=== PATIENT | male | born 2000 | race Caucasian/White ===

== ENCOUNTER 2019-03-12 10:08 | Emergency (ER) | payer OTHER ==
[~2019-03-12] VITALS: Ht 182.9 cm; Wt 78.9 kg
[2019-03-12 10:08] VITALS: BP 96/61
--- NOTE | 2019-03-12 10:08 | NUR ---
PT BIBA TO BED 09.
--- NOTE | 2019-03-12 10:09 | NUR ---
pr arrived to ed by ambulance c/o right sided pain s/p falling off a skateboard x today at [id number]. pt rates pain level of 7/10 and describes it as sharp pain. right shoulder pain has abrasions, no obvious deformity noted. right side of head shows redness on scalp and no bleeding/hematoma noted. right sided arm has cms intact. a&o x 4. perrla 2mm. vs stable. no loc denies pmh. nka.
[2019-03-12 10:17] VITALS: BP 96/61
[2019-03-12] MEDS ORDERED: BACITRACIN OINT 500 UNITS/GM PKT TP ONE ×2 (10:35→10:36)
--- NOTE | 2019-03-12 10:40 | NUR ---
radiology at bedside.
--- NOTE | 2019-03-12 10:48 | NUR ---
pt returned from radiology
[2019-03-12] MEDS ORDERED: KETOROLAC 60 MG/2 ML VIAL IM ONE (10:55)
--- NOTE | 2019-03-12 11:06 | NUR ---
PATIENT TAKEN FOR CT SCAN VIA WHEELCHAIR.
--- NOTE | 2019-03-12 11:51 | NUR ---
Patient discharged with v/s stable. Written and verbal after care instructions given and explained. Patient alert, oriented and verbalized understanding of instructions. Ambulatory with steady gait. All questions addressed prior to discharge. ID band removed. Patient advised to follow up with PMD. Rx of MOTRIN AND TRAMDOL given. Patient educated on indication of medication including possible reaction and side effects. Opportunity to ask questions provided and answered.
== END 2019-03-12 11:51 | disposition home or self-care (01) ==
LOC: MED 10:08
DX: S42.031A Displaced fracture of lateral end of right clavicle, initial encounter for closed fracture (principal); S09.90XA Unspecified injury of head, initial encounter; V00.131A Fall from skateboard, initial encounter; Y93.89 Activity, other specified; Y92.89 Other specified places as the place of occurrence of the external cause; Y99.8 Other external cause status
CPT/HCPCS: 70450; 73030; 96372; 99284; J1885